=== PATIENT | female | born 1950 | race Caucasian/White ===

== ENCOUNTER 2020-10-21 01:39 | Emergency (ER) | payer OTHER, SELFPAY ==
[~2020-10-21] VITALS: Ht 152.4 cm; Wt 75.0 kg
[~2020-10-21 01:39] MED LIST: ACID REDUCER20 MG PO; ASPIR 8181 MG PO; AUGMENTIN 875-1 EACH PO; AZITHROMYCIN1 GM; COZAAR50 M1 PO; DECADRON6 MG PO; FORTAMET1000 MG PO; HYDRALAZINE HCL25 MG PO; LANTI SQ; LORADAMED10 M1 PO; PROAIR RES117 MCG/Ac; TRAZODONE150 M1 PO
[2020-10-21 02:11] VITALS: Ht 152.4 cm; Wt 75.0 kg
[2020-10-21 03:39] LABS: PLATELET COUNT 252 x10^3mcL (179-408); RED CELL DISTRIBUTION WIDTH 13.6 % (12.3-17.7)
[2020-10-21 03:55] LABS: CALCIUM 10.7 mg/dL (8.5-10.1); CARBON DIOXIDE 27.5 mmol/L (21-32); CREATININE SERUM 1.3 mg/dL (0.6-1.0); POTASSIUM SERUM 3.2 mmol/L (3.5-5.1)
[2020-10-21 03:59] LABS: ALBUMIN 3.9 g/dL (3.4-5.0); BILIRUBIN TOTAL 0.57 mg/dL (0.20-1.00)
[2020-10-21 07:28] VITALS: BP 138/78
== END 2020-10-21 07:28 | disposition home or self-care (01) ==
LOC: ED 01:39
DX: N30.91 Cystitis, unspecified with hematuria (principal); I10 Essential (primary) hypertension; E11.9 Type 2 diabetes mellitus without complications
CPT/HCPCS: 82962